=== PATIENT | female | born 1945 | race Caucasian/White ===

== ENCOUNTER → 2018-07-28 | Outpatient (CLI) | payer MEDICARE ==
[~2018-07-28] MED LIST: ASPI81TA94 PO; FLU180SY9 IM; PNEU0.5D3 IM
--- NOTE | 2018-07-28 11:02 | RADIOLOGY IMAGING REPORT ---
FACILITY: [facility] PATIENT NAME: Brigette Luevano : 1945 MR: [id number] V: [id number] EXAM DATE: ORDERING PHYSICIAN: ANNE-MARIE ROSE TECHNOLOGIST: Location: [facility] - [place] Patient: Brigette Luevano : 1945 Visit/Account:[id number] Date of Sevice: 07/28/2018 DEXA Scan Clinical history: screening. Comparison: None. LUMBAR SPINE: The bone mineral density (BMD) measured from L1-L4 correlates with a Z-score of 1.8 and a T-score of 0.2 which is within normal range as defined by the World Health Organization. The corresponding risk of fracture in the lumbar spine is not increased compared with a young adult reference population. HIP: Bone mineral density (BMD) measured in the Left total hip region correlates with a Z-score of -0.1 and a T-score of -1.6. The T-score of the femoral neck is -1.3. The lower of the two T sco res is osteopenic which is defined as defined by the World Health Organization. The corresponding risk of fracture in the hip is moderately increased compared with a young adult reference population. Bone mineral density (BMD) measured in the Left Femoral Neck region measures 0.859 g/cm?. Impression: 1. Lumbar spine: Within normal range. 2. Left Total Hip: Osteopenic. The next DEXA scan of this patient should include the following sites: L1-L4 and Left hip. FRAX? WHO Fracture Risk Assessment Tool link: <http://www.shef.ac.uk/FRAX/tool.jsp?locationValue=9> PLEASE NOTE: 1) The World Health Organization defines low BMD as follows: T-score Normal > -1 Osteopenia < -1 and > -2.5 Osteoporosis < -2.5 without fractures Established osteoporosis < -2.5 with fractures 2) In general, you may wish to consider: Diagnosis Treatment Follow-up DEXA Normal BMD Prevention 2-3 years Osteopenia Prevention/therapy 1-2 years Osteoporosis Therapy Yearly 3) Fracture risk estimated from the T-score is more accurate for vertebral fractures (often spontane ous) than for hip fractures. Report Dictated By: Tariq Bennett MD at 07/28/2018 10:56 AM Report E-Signed By: Tariq Bennett MD at 07/28/2018 10:58 AM WSN:[email or web address]
--- NOTE | 2018-07-28 11:16 | RADIOLOGY IMAGING REPORT ---
FACILITY: [facility] PATIENT NAME: Brigette Luevano : 1945 MR: [id number] V: [id number] EXAM DATE: ORDERING PHYSICIAN: ANNE-MARIE ROSE TECHNOLOGIST[place] [facility] [place] Brigette Luevano : 1945 Visit/Account:[id number] Date of Sevice: 07/28/2018 LUMBAR SPINE 2 OR 3 VIEW HISTORY: Low back pain Additional history: None COMPARISON: None. FINDINGS: No compression fractures are seen. There is disc space narrowing at virtually every level of the lum bar spine most advanced at L3-4 through L5-S1. At L5-S1 there appears to be [id number] abutment. Accompanying facet arthropathy is seen in the lower lumbar spine. IMPRESSION: Degenerative disease throughout the lumbar spine most extensive in the lower aspect of the lumbar spi ne. Report Dictated By: Tariq Bennett MD at 07/28/2018 11:09 AM Report E-Signed By: Tariq Bennett MD at 07/28/2018 11:12 AM WSN:[email or web address]
--- NOTE | 2018-07-28 11:18 | RADIOLOGY IMAGING REPORT ---
FACILITY: [facility] - [place] PATIENT NAME: Brigette Luevano : 1945 MR: [id number] V: [id number] EXAM DATE: ORDERING PHYSICIAN: ANNE-MARIE ROSE TECHNOLOGIST: [place] [facility] [place]ette Luevano : 1945 Visit/Account:[id number] Date of Sevice: 07/28/2018 CERVICAL SPINE 2 OR 3 VIEW History: Pain ADDITIONAL CLINICAL HISTORY none COMPARISON STUDIES: None FINDINGS: Osseous structures: Normal. Spinal axis aligned. Disc space height : Minimal disc space narrowing seen at C5-6.. Reactive anterior endplate hypertro phic changes are seen at C6-7. Remaining discs normal. Soft tissues : Normal. IMPRESSION: There is at least mild degenerative disease C5-6 and C6-7 Report Dictated By: Tariq Bennett MD at 07/28/2018 11:12 AM Report E-Signed By: Tariq Bennett MD at 07/28/2018 11:13 AM WSN:[email or web address]
== END ==
LOC: MAMO 01:24
PROVIDERS: ATTEND Family Medicine
DX: Z12.31 Encounter for screening mammogram for malignant neoplasm of breast (principal); M85.80 Other specified disorders of bone density and structure, unspecified site; M54.5 Low back pain; M54.2 Cervicalgia; Z78.0 Asymptomatic menopausal state
CPT/HCPCS: 72040; 72100; 77063; 77067; 77080

== ENCOUNTER → 2018-08-30 | Outpatient (CLI) | payer MEDICARE ==
[2018-08-30 11:55] LABS: LDL CHOLESTEROL 86 mg/dl
--- NOTE | 2018-08-31 08:37 | RADIOLOGY IMAGING REPORT ---
FACILITY: [facility] - [place] PATIENT NAME: MATHEUS LATHAM : [id number] MR: [id number] V: [id number] EXAM DATE: [id number] ORDERING PHYSICIAN: ANNE-MARIE ROSE TECHNOLOGIST: Taylor Quick PROCEDURE:RIGHT DIGITAL DIAGNOSTIC MAMMOGRAM WITH CAD ASSISTED INTERPRETATION & 3D TOMOSYNTHESIS COMPARISON:Prior mammograms 07/28/18, 07/10/14, 07/24/11, 07/12/09. INDICATIONS:FURTHER EVAL FINDINGS: The patient received Spot compression views in the Right CC & MLO projections in addition to a mediolateral view or the Right breast. The 2 small nodular densities in the 7 & 9 o'clock positions of the Right breast will be demonstrated on today's study. At the time of the initial examination the patient's previous mammograms were not available. They have subsequently become available and these nodular densities are stable. DIAGNOSTIC CATEGORY 2--BENIGN FINDING. RECOMMENDATIONS: ROUTINE MAMMOGRAM AND CLINICAL EVALUATION. IMPRESSION: BIRADS 2: Benign finding. No significant abnormality is seen. Please see above discussion. Dictated by: Ksenia Aguilar M.D. on 08/30/2018 at 11:33 Transcribed by: BIANCA on 08/30/2018 at 11:46 Approved by: Ksenia Aguilar M.D. on 08/31/2018 at 8:35 [facility]
== END ==
LOC: MAMO 01:09
PROVIDERS: ATTEND Family Medicine
DX: E78.5 Hyperlipidemia, unspecified (principal); R92.8 Other abnormal and inconclusive findings on diagnostic imaging of breast
CPT/HCPCS: 36415; 77061; 77065; 82040; 82247; 82310; 82374; 82435; 82465; 82565; 82947; 83718; 84075; 84132; 84155; 84295; 84450; 84460; 84478; 84520